=== PATIENT | male | born 2005 | race Two or more races ===

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

== ENCOUNTER 2023-04-19 19:17 | Emergency (ER) | payer BC ==
[~2023-04-19] VITALS: Ht 185.4 cm; Wt 147.4 kg
[~2023-04-19 19:17] MED LIST: IBUP-1953 PO
[2023-04-19 19:26] VITALS: BP 156/79
[2023-04-19] MEDS ORDERED: FLUORESCEIN SODIUM OPHTH 1 EA STRIP ONE (19:36)
[2023-04-19] MEDS ORDERED: POLY10DR OP (19:48)
--- NOTE | 2023-04-19 19:52 | NUR ---
Patient discharged to home in stable condition. Written and verbal after care instructions given. Patient verbalizes understanding of instruction.
[2023-04-19] MEDS ORDERED: FLUORESCEIN SODIUM OPHTH 1 EA STRIP OP ONE (20:00)
== END 2023-04-19 19:52 | disposition home or self-care (01) ==
LOC: ER 19:20
DX: H57.89 Other specified disorders of eye and adnexa (principal); Z79.899 Other long term (current) drug therapy; Z91.010 Allergy to peanuts